=== PATIENT | female | born 1975 | race Asian ===

== ENCOUNTER → 2016-03-25 | Outpatient (CLI) | payer OTHER ==
[2016-03-25 15:14] LABS: CHOLESTEROL 161.24 mg/dL (0-200); TRIGLYCERIDES 67 mg/dL (<150)
== END ==
LOC: LAB 14:33
PROVIDERS: ATTEND Dermatology
DX: Z79.899 Other long term (current) drug therapy (principal)
CPT/HCPCS: 36415; 82465; 84478; 84702

== ENCOUNTER → 2016-04-23 | Outpatient (CLI) | payer OTHER ==
[2016-04-23 12:58] LABS: CHOLESTEROL 147.13 mg/dL (0-200)
== END ==
LOC: LAB 12:16
PROVIDERS: ATTEND Dermatology
DX: Z79.899 Other long term (current) drug therapy (principal); Z32.00 Encounter for pregnancy test, result unknown
CPT/HCPCS: 36415; 82465; 84478; 84702; 84703

== ENCOUNTER → 2016-05-21 | Outpatient (CLI) | payer OTHER ==
[2016-05-21 07:51] LABS: CHOLESTEROL 146.68 mg/dL (0-200); TRIGLYCERIDES 125 mg/dL (<150)
== END ==
LOC: LAB 07:18
PROVIDERS: ATTEND Dermatology
DX: Z79.899 Other long term (current) drug therapy (principal)
CPT/HCPCS: 36415; 82465; 84478; 84702

== ENCOUNTER → 2016-07-02 | Outpatient (CLI) | payer OTHER | LOC: LAB 17:43 | PROVIDERS: ATTEND Dermatology | DX: Z79.899 Other long term (current) drug therapy (principal) | CPT/HCPCS: 36415; 84702 ==

== ENCOUNTER → 2016-07-30 | Outpatient (CLI) | payer OTHER | LOC: LAB 07:10 | PROVIDERS: ATTEND Dermatology | DX: Z79.899 Other long term (current) drug therapy (principal) | CPT/HCPCS: 36415; 84702 ==